=== PATIENT | female | born 1980 | race Caucasian/White ===

== ENCOUNTER 2021-08-06 02:31 | Emergency (ER) | payer MEDICAID ==
[2021-08-06] MEDS ORDERED: Diphtheria,Pertussis(Acell),Tetanus Vaccine 0.5 ML Syringe IM ONE (02:53)
--- NOTE | 2021-08-06 02:53 | EDM.PDOC ---
ED HPI GENERAL MEDICAL PROBLEM - General Chief Complaint: Skin Complaint Stated Complaint: RIGHT HAND CUT Time Seen by Provider: 08/06/21 02:36 Source of Information: Reports: Patient History Limitations: Reports: No Limitations - History of Present Illness INITIAL COMMENTS - FREE TEXT/NARRATIVE: Patient is a 41-year-old female presents today for laceration to her right palmar side of thumb. Patient was washing dishes when she put her hand in water and press down on a broken cup and suffered a laceration. She was able control the bleeding with direct pressure. She states no foreign objects were left in her skin she denies any other injuries any other complaints. - Related Data Allergies Allergy/AdvReac Type Severity Reaction Status Date / Time Latex, Natural Rubber Allergy Hives Verified 08/06/21 02:59 Home Meds: Home Meds . [No Known Home Meds] 08/06/21 [History] ED ROS GENERAL - Review of Systems Review Of Systems: See Below Constitutional: Reports: No Symptoms HEENT: Reports: No Symptoms Respiratory: Reports: No Symptoms Cardiovascular: Reports: No Symptoms Endocrine: Reports: No Symptoms GI/Abdominal: Reports: No Symptoms : Reports: No Symptoms Musculoskeletal: Reports: No Symptoms Skin: Reports: Other (laceration ) Neurological: Reports: No Symptoms Psychiatric: Reports: No Symptoms Hematologic/Lymphatic: Reports: No Symptoms Immunologic: Reports: No Symptoms ED EXAM, SKIN/RASH Exam: See Below Exam Limited By: No Limitations General Appearance: Alert, WD/WN, No Apparent Distress Nose: Normal Inspection Head: Atraumatic Neck: Normal Inspection Respiratory/Chest: No Respiratory Distress, Lungs Clear, Normal Breath Sounds Cardiovascular: Normal Peripheral Pulses, Regular Rate, Rhythm GI/Abdominal: Normal Bowel Sounds, Soft, Non-Tender Extremities: Normal Inspection, Normal Range of Motion Neurological: Alert, Oriented Skin: Other (Laceration about 4 cm palmar side of the base of right thumb) ED SKIN PROCEDURES - Laceration/Wound Repair Right Hand Appearance: Superficial, Subcutaneous, Clean Distal NVT: Neuro & Vascular Intact, No Tendon Injury Local Anesthesia - Lidocaine (Xylocaine): 1% Plain Local Anesthetic Volume: 3cc Skin Prep: Chlorhexidine (Hibiciens) Exploration/Debridement/Repair: Wound Explored Closed with: Sutures Lac/Wound length In cm: 4 Suture Size: 6-0 # of Sutures: 9 Suture Type: Interrupted Course - Vital Signs Last Recorded V/S: Last Vital Signs Temp 97.9 F 08/06/21 02:45 Pulse 114 H 08/06/21 02:45 Resp 18 08/06/21 02:45 BP 145/102 H 08/06/21 02:45 Pulse Ox 97 08/06/21 02:45 - Orders/Labs/Meds Orders: Active Orders 24 hr Category Date Time Status Vaccine to be Administered/Admin Charge [RC] ASDIRECTED Care 08/06/21 02:53 Ordered Meds: Medications Discontinued Medications Generic Name Dose Route Start Last Admin Trade Name Freq PRN Reason Stop Dose Admin Diphtheria/Tetanus/Acell Pertussis 0.5 ml 08/06/21 02:53 Diphtheria,Pertussis(Acell),Tetanus Vaccine 0.5 Ml Syringe IM 08/06/21 02:54 .ONCE ONE Lidocaine HCl 5 ml 08/06/21 02:53 Lidocaine 1% 5 Ml Sdv INJECT 08/06/21 02:54 ONETIME ONE Lidocaine HCl Confirm 08/06/21 02:55 08/06/21 03:01 Lidocaine 1% 5 Ml Sdv Administered 08/06/21 02:56 Not Given Dose 5 ml .ROUTE .STK-MED ONE - Re-Assessments/Exams Free Text/Narrative Re-Assessment/Exam: 08/06/21 03:20 Patient lack repaired patient will return in the next 7 to 10 days I have laceration repaired. Departure - Departure Time of Disposition: 03:20 Disposition: Home, Self-Care 01 Condition: Good Clinical Impression: Laceration of hand - Discharge Information *PRESCRIPTION DRUG MONITORING PROGRAM REVIEWED*: Not Applicable *COPY OF PRESCRIPTION DRUG MONITORING REPORT IN PATIENT DERRICK: Not Applicable Instructions: Laceration Care, Adult, [id number] Referrals: [facility] [Primary Care Provider] - Forms: ED Department Discharge Additional Instructions: The following information is given to patients seen in the emergency department who are being discharged to home. This information is to outline your options for follow-up care. We provide all patients seen in our emergency department with a follow-up referral. The need for follow-up, as well as the timing and circumstances, are variable depending upon the specifics of your emergency department visit. If you don't have a primary care physician on staff, we will provide you with a referral. We always advise you to contact your personal physician following an emergency department visit to inform them of the circumstance of the visit and for follow-up with them and/or the need for any referrals to a consulting specialist. The emergency department will also refer you to a specialist when appropriate. This referral assures that you have the opportunity for follow-up care with a specialist. All of these measure are taken in an effort to provide you with optimal care, which includes your follow-up. Under all circumstances we always encourage you to contact your private physician who remains a resource for coordinating your care. When calling for follow-up care, please make the office aware that this follow-up is from your recent emergency room visit. If for any reason you are refused follow-up, please contact the [facility] Emergency Department at and asked to speak to the emergency department charge nurse. Please follow up with your primary care physician. If you do not have a primary care physician, see below: [facility] [address] [place] [id number] My [facility] [address] [place] [id number] You are seen today for a cut to your right hand. We repaired it with a suture. You should keep it dry for the first day but otherwise you can get it wet to still submerge underwater. Also apply bacitracin to it twice a day. Please return to the your primary medical doctor to have them return move the next 7 to 10 days if you cannot follow-up to primary doctor you can return to the ED. Sepsis Event Note (ED) - Focused Exam Vital Signs: Vital Signs Temp Pulse Resp BP Pulse Ox 08/06/21 02:45 97.9 F 114 H 18 145/102 H 97 - My Orders Last 24 Hours: My Active Orders 08/06/21 02:53 Vaccine to be Administered/Admin Charge [RC] ASDIRECTED - Assessment/Plan Last 24 Hours: My Active Orders 08/06/21 02:53 Vaccine to be Administered/Admin Charge [RC] ASDIRECTED Plan: Patient is a 41-year-old female presents today for laceration to the palmar side of her right thumb. Will repair with sutures and provide tetanus.
== END 2021-08-06 03:34 | disposition home or self-care (01) ==
LOC: MW.ED 02:31
DX: S61.411A Laceration without foreign body of right hand, initial encounter (principal); Z23 Encounter for immunization; Z91.040 Latex allergy status; W26.8XXA Contact with other sharp object(s), not elsewhere classified, initial encounter; Y93.G1 Activity, food preparation and clean up
CPT/HCPCS: 12002; 90471; 90715; 99282-25

== ENCOUNTER 2021-11-08 06:41 | Day surgery (SDC) | payer MEDICAID ==
[~2021-11-08 06:41] MED LIST: Lactated Ringers 1,000 ML IV SCH; ceFAZolin 2 GM in Premix Bag 1 BAG IV ONE
[2021-11-08] MEDS ORDERED: Metoclopramide 10 MG/2 ML SDV IVPUSH PRN (06:45)
[2021-11-08] MEDS ORDERED: Ondansetron 4 MG/2 ML SDV IVPUSH PRN (06:45)
[2021-11-08] MEDS ORDERED: fentaNYL 100 MCG/2 ML SDV IVPUSH PRN (06:45)
[2021-11-08] MEDS ORDERED: Albuterol 0.083% 2.5 MG/3 ML Neb Soln NEB PRN (06:45)
[2021-11-08] MEDS ORDERED: Naloxone 0.4 MG/ML SDV IVPUSH PRN (06:45)
[2021-11-08] MEDS ORDERED: HYDROmorphone 1 MG/ML Syringe IVPUSH PRN (06:45)
[2021-11-08] MEDS ORDERED: Morphine 4 MG/ML VIAL IVPUSH PRN (06:45)
[2021-11-08] MEDS ORDERED: Bupivacaine 0.5% 30 ML SDV ONE (07:16)
[2021-11-08] MEDS ORDERED: Bupivacaine 25%/EPINEPHrine/PF 30 ML ONE (07:17)
[2021-11-08] MEDS ORDERED: Lidocaine 2% 5 ML SDV ONE (07:23)
[2021-11-08] MEDS ORDERED: Dexmedetomidine 200 MCG/2 ML SDV ONE (07:23)
[2021-11-08] MEDS ORDERED: Dexamethasone 4 MG/ML 5 ML MDV ONE (07:23)
[2021-11-08] MEDS ORDERED: fentaNYL 100 MCG/2 ML SDV ONE (07:24)
[2021-11-08] MEDS ORDERED: Midazolam 1 MG/ML 2 ML SDV ONE (07:24)
[2021-11-08] MEDS ORDERED: Water For Injection, Sterile 20 ML ONE (07:24)
[2021-11-08] MEDS ORDERED: Propofol 200 MG/20 ML SDV ONE (07:24)
[2021-11-08] MEDS ORDERED: Lidocaine 1% with EPINEPHrine 1:100,000 20 ML MDV ONE (08:12)
[2021-11-08] MEDS ORDERED: Esmolol 100 MG/10 ML SDV ONE (08:15)
[2021-11-08] MEDS ORDERED: ceFAZolin 1 GM Vial ONE (08:36)
[2021-11-08] MEDS ORDERED: Ondansetron 4 MG/2 ML SDV ONE (08:57)
[2021-11-08] MEDS ORDERED: Acetaminophen/oxyCODONE 325-5 MG Tab PO ONE (10:00)
== END 2021-11-08 11:21 | disposition home or self-care (01) ==
LOC: MW.SDS 06:41
PROVIDERS: ATTEND Surgery
DX: L72.11 Pilar cyst (principal); J45.909 Unspecified asthma, uncomplicated; I10 Essential (primary) hypertension; F32.A Depression, unspecified; E66.9 Obesity, unspecified; K21.9 Gastro-esophageal reflux disease without esophagitis; Z87.891 Personal history of nicotine dependence; Z91.040 Latex allergy status; Z79.899 Other long term (current) drug therapy; Z68.41 Body mass index [BMI] 40.0-44.9, adult
CPT/HCPCS: 11426; 81025; A9270; J0131; J0330; J0690; J1100; J2250; J2405; J2704; J3010; J3490; J7120; 00300